=== PATIENT | male | born 1955 | race Caucasian/White ===

== ENCOUNTER 2016-08-27 16:05 | Inpatient (IN) | payer OTHER ==
[2016-08-27] VITALS (8 sets, daily range): BP systolic 102–167; BP diastolic 58–95; PULSE 111–161; RESP 18–20; O2SAT 92–97
[~2016-08-27] VITALS: Ht 160 cm; Wt 92.2 kg
--- NOTE | 2016-08-27 16:15 | ED.REPORT ---
HPI-General Illness Date of Service Aug 27, 2016 ED Provider: Roz Law MD The patient is a 60 year old male who is HIV positive on medication who presents to the ED due to left leg swelling increased in severity from baseline , beginning at 1pm this afternoon. He has had issues with edema for several years and is generally able to use antibiotics at home to successfully treat symptoms. Today he also reports fever, tachycardia, left leg pain, fatigue, and slight SOB. He denies weakness, dizziness, nausea, diarrhea, and cough. Nursing Notes Stated Complaint: LEG SWELLING, HX OF CELLULITIS Chief Complaint: General Complaint Nursing Notes Reviewed: Yes Allergies: Coded Allergies: Sulfa (Sulfonamide Antibiotics) (Verified Allergy, Unknown, 08/27/16) General Time Seen by MD: 16:14 Chief Complaint Other (left leg swelling) Hx Obtained From: Patient Arrived By: Walk-in Symptom Duration: Since onset Location: : Leg left Quality: Painful Severity: Current: Mild Recent Healthcare: No recent doctor visit, No recent hospitalization Similar Sx Previous: Yes Past Medical History Past Medical History HIV positive on medication Past Surgical History unknown Smoking History Unknown if Ever Smoker Social History Other Social History: Good social support, Local resident Ambulatory Status Independent Review of Systems Full Review of Systems Constitutional: Reports: Fatigue, Fever Respiratory: Reports: Shortness of breath, Denies: Non-productive cough GI: Denies: Diarrhea, Nausea Musculoskeletal: Reports: Extremity pain Neurologic: Denies: Dizziness, Weakness Complete sys rev & neg: except as marked. Physical Exam Vital Signs Vital Signs Date Time Temp Pulse Resp B/P Pulse Ox O2 Delivery O2 Flow Rate FiO2 08/27/16 18:46 113 18 110/64 93 Room Air 08/27/16 18:30 115 19 102/67 93 Room Air 08/27/16 17:25 125 18 125/58 92 Room Air 08/27/16 16:45 37.9 08/27/16 16:08 39.1 161 20 167/95 93 Room Air Initial VS: Reviewed, Vital signs abnormal Skin: Warm, Dry General/Constitutional: Awake, Alert, No acute distress Head / Eyes: Atraumatic, Normocephalic, PERRL, EOMI Respiratory / Chest: Atraumatic, Breath sounds NL, Breath sounds = bilat, No respiratory distress Cardiovascular: Regular rhythm, Heart sounds NL Heart Rate / Rhythm: Positive: Tachycardia Lower Ext Edema: Positive: Left 3+ Abdomen: Atraumatic, Soft, Non-tender Left Ankle: Positive: Erythema present Left Foot: Positive: Erythema present Interpretation & Diagnostics Interpretation & Diagnostics: VENOUS DUPLEX US IMPRESSION: No evidence of deep vein thrombosis involving the left lower extremity. Dictated by: Kristen Coates MD, PhD on 08/27/2016 at 17:52 Approved by: Kristen Coates MD, PhD on 08/27/2016 at 17:52 Lab Results Interpretation Result Diagram: 08/27/16 1625 08/27/16 1625 Test 08/27/16 16:25 08/27/16 18:37 White Blood Count 16.4th/mm3 (3.8-10.1) Red Blood Count 4.39mil/mm3 (4.40-5.80) Hemoglobin 14.9g/dL (13.8-17.2) Hematocrit 42.6% (41.0-50.0) Mean Corpuscular Volume 97.0fL (81-100) Mean Corpuscular Hemoglobin 33.9pg (27.0-35.0) Mean Corpuscular Hemoglobin Concent 35.0% (32.0-37.0) Red Cell Distribution Width 12.8% (12.3-15.4) Platelet Count 154bil/L (150-400) Neutrophils (%) (Auto) 88.4% (40-74) Lymphocytes (%) (Auto) 4.6% (14-46) Monocytes (%) (Auto) 5.4% (4-12) Eosinophils (%) (Auto) 0.9% (0-5) Basophils (%) (Auto) 0.2% (0-3) Sodium Level 135mEq/L (134-144) Potassium Level 3.9mEq/L (3.5-5.2) Chloride Level 97mEq/L (97-108) Carbon Dioxide Level 21mmol/L (18-29) Blood Urea Nitrogen 16mg/dL (6-24) Creatinine 1.35mg/dL (0.76-1.27) Estimat Glomerular Filtration Rate 58mL/min (>59) Glucose Level 251mg/dL (60-99) Lactic Acid Level 3.8mmol/L (0.4-2.0) Calcium Level 10.1mg/dL (8.5-10.1) Magnesium Level 1.5mg/dL (1.6-2.6) Total Bilirubin 0.6mg/dL (0.0-1.2) Aspartate Amino Transf (AST/SGOT) 32U/L (0-50) Alanine Aminotransferase (ALT/SGPT) 35U/L (0-44) Alkaline Phosphatase 66U/L (25-150) Troponin T < 0.010ug/L (0.0-0.011) Total Protein 8.0g/dL (6.4-8.4) Albumin 4.7g/dL (3.4-5.0) Procalcitonin 2.24ng/mL (0.00-0.08) Urine Color Yellow (YELLOW) Urine Appearance Clear (CLEAR,HAZY) Urine pH 6.0 (5.0-8.0) Urine Specific [place] 1.015 (1.003-1.035) Urine Protein Tracemg/dL (NEG,TRACE) Urine Glucose (UA) 1000mg/dL (NEGATIVE) Urine Ketones Negativemg/dL (NEGATIVE) Urine Occult Blood Small (NEGATIVE) Urine Nitrite Negative (NEGATIVE) Urine Bilirubin Negative (NEGATIVE) Urine Urobilinogen Normalmg/dL (NORMAL) Urine Leukocyte Esterase Negative (NEGATIVE) Urine RBC 0-2/hpf (0-2) Urine WBC 0-5/hpf (0-5) Urine Epithelial Cells None/hpf (NONE-MOD) Urine Crystals None seen (NONE SEEN) Urine Bacteria Few/hpf (NONE-FEW) Urine Hyaline Casts None/lpf (NONE) Urine Granular Casts None seen (NONE SEEN) Urine Waxy Casts None seen (NONE SEEN) Urine Red Blood Cell Casts None seen (NONE SEEN) Urine White Blood Cell Casts None seen (NONE SEEN) Urine Mucus None seen (None Seen) Urine Trichomonas None seen (NONE SEEN) Urine Yeast None (NONE SEEN) Urinalysis Comment None Urine Culture Reflexed Not indicated ECG Interpretation Interpreted by: ED physician Normal ECG Interpretation: No acute ischemic changes, Normal axis, Normal intervals Rhythm / Conduction: Tachycardia (145) X-Ray Chest Interpretation Chest Xray Interpretation: IMPRESSION: No acute cardiopulmonary disease process. Dictated by: Kristen Coates MD, PhD on 08/27/2016 at 16:46 Approved by: Kristen Coates MD, PhD on 08/27/2016 at 16:46 View: Portable Interpretation / Wet Read by: Interpret - Radiologist Re-Eval/Medical Decision Med Decision/Clinical Course The patient started having symptoms just this afternoon, he meets sepsis criteria. The patient improved during his stay in the emergency department was started on broad-spectrum antibiotics. Consultation : Referral / Consult Name: Wander Hernandez Consulted With: Hospitalist Call Returned at: 18:36 Manufacturers Representative: Agrees with eval, Agrees with plan Note: Case discussed. Counseled Regarding: Diagnosis, Lab results, Need for admission Discharge & Departure Primary Impression: Sepsis Sepsis type: sepsis due to unspecified organism Qualified Code: A41.9 - Sepsis, unspecified organism Additional Impression: Cellulitis Site of cellulitis: unspecified site Qualified Code: L03.90 - Cellulitis, unspecified Disposition: ADMITTED TO HOSPITAL Discharge Condition All VS Reviewed: Yes Condition: Stable Referrals: Skip George MD (PCP) Scribe Attestation Portion of this note were transcribed by Whitley Root. I, Dr. Law, personally performed the history, physical exam, and medical decision-making: I reviewed and confirmed the accuracy for the information in the transcribed note. Signed by: pranay Zuniga, 08/27/16 1700 copies to: Skip George MD, Jena M MD Aug 27, 2016 16:15 Whitley Root Aug 27, 2016 16:25
[2016-08-27] MEDS ORDERED: Vancomycin Dose per Pharmacist XX ONE (16:20)
[2016-08-27] MEDS ORDERED: Aztreonam Inj 2,000 MG in Dextrose 5% Minibag Plus 100 ML IV ONE (16:20)
[2016-08-27] MEDS ORDERED: Clindamycin Inj 900 MG in IV Premix 1 EACH IV ONE (16:20)
[2016-08-27] MEDS ORDERED: 0.9% Sodium Chloride 1,000 ML IV PRN (16:20)
[2016-08-27] MEDS ORDERED: Ketorolac 15 mg/mL Inj IVPUSH ONE (16:25)
[2016-08-27] MEDS ORDERED: HYDROmorphone 0.5 mg/0.5 mL iSecure Syringe IVPUSH ONE (16:25)
--- NOTE | 2016-08-27 16:38 | PCM.PHAPRO ---
Progress Based on patient parameters vancomycin will receive a one-time dose of 1750 mg Please reconsult pharmacy if the patient is admitted and you wish for vancomycin therapy to continue. Thank you for the consult in the care of this patient. RTM PharmD Madi Mcqueen Pharm.D Aug 27, 2016 16:38
[2016-08-27] MEDS ORDERED: Vancomycin Inj 1,500 MG in 0.9% Sodium Chloride 500 ML IV ONE (16:40)
--- NOTE | 2016-08-27 16:48 | DRSVH ---
PROCEDURE: X-RAY CHEST ONE VIEW, PORTABLE ([id number]) INDICATIONS: sepsis TECHNIQUE: One view of the chest was acquired. COMPARISON: None. FINDINGS: Surgical changes and devices: None. Lungs and pleura: No pleural effusions or pneumothorax. Lungs are clear. Mediastinum: Mediastinal contours appear normal. Heart size is normal. Bones and chest wall: No suspicious bony lesions. Overlying soft tissues appear unremarkable. IMPRESSION: No acute cardiopulmonary disease process. Dictated by: Kristen Coates MD, PhD on 08/27/2016 at 16:46 Approved by: Kristen Coates MD, PhD on 08/27/2016 at 16:46
[2016-08-27 16:58] LABS: BASOPHILS % (AUTO) 0.2 % (0-3); EOSINOPHILS % (AUTO) 0.9 % (0-5); MONOCYTES % (AUTO) 5.4 % (4-12); Mean Corpuscular Hemoglobin 33.9 pg (27.0-35.0); NEUTROPHILS % (AUTO) 88.4 % (40-74); Platelet Count 154 bil/L (150-400)
[2016-08-27 17:32] LABS: TROPONIN T < 0.010 ug/L (0.0-0.011)
[2016-08-27 17:38] LABS: Magnesium 1.5 mg/dL (1.6-2.6)
--- NOTE | 2016-08-27 17:54 | DRSVH ---
PROCEDURE: US VEINOUS LEG DUPLEX UNILATERAL, LEFT INDICATIONS: left leg swelling TECHNIQUE: Real-time imaging, as well as color and pulse Doppler interrogation, were performed of the lower extr emity deep veins from the inguinal ligament to the popliteal fossa. COMPARISON: None. FINDINGS: The deep veins are normally compressible, and free of intraluminal thrombus. Color and pu lse Doppler demonstrate normal phasic intraluminal flow. There is normal augmentation response to di stal compression maneuver. IMPRESSION: No evidence of deep vein thrombosis involving the left lower extremity. Dictated by: Kristen Coates MD, PhD on 08/27/2016 at 17:52 Approved by: Kristen Coates MD, PhD on 08/27/2016 at 17:52
[2016-08-27 18:46] LABS: APPEARANCE,URINE CLEAR (CLEAR,HAZY); COLOR,URINE YELLOW (YELLOW)
[2016-08-27 18:47] LABS: OCCULT BLOOD,URINE SMALL (NEGATIVE); UROBILINOGEN,URINE NORMAL (NORMAL)
[2016-08-27] MEDS ORDERED: Lactated Ringer's 1,000 ML IV SCH (19:36)
[2016-08-27] MEDS ORDERED: Alum-Mag Hydrox-Simeth 30 mL Suspension PO PRN ×2 (19:40→21:20)
[2016-08-27] MEDS ORDERED: Ondansetron 2 mg/mL 2 mL Inj IVPUSH PRN ×2 (19:40→21:20)
[2016-08-27] MEDS: Vancomycin Dose per Pharmacist XX SCH (19:45)
--- NOTE | 2016-08-27 19:52 | PCM.HPMED ---
Subjective Date of Service Aug 27, 2016 Primary Provider: Admitting Physician: Jayme Gomez MD Primary Care Physician: Skip George MD Attending Physician: Jayme Gomez MD Admit Status: From the Emergency Department Chief Complaint: Left Leg Cellulitis History of Present Illness: 60yo man with history of HIV since 2008 well managed went to this afternoon with fever, nausea, vomiting, and left lower extremity swelling, erythema, and pain that started at 1pm with no inciting incident, no broken skin, no trauma. He was sent to the ER where he was found to have VS of T 39.1, HR 161, RR 20, BP 167/95 and 93% O2 sat on room air. Venous ultrasound of left LE was negative for DVT. He was given a bolus of 1 liter of NS, and one dose each of Vancomycin, Aztreonam, and Clindamycin along with pain medications. He is resting comfortably. He says his left leg is always more swollen than the right and he has had milder similar symptoms in the past without feeling otherwise ill. He reports being diagnosed with HIV in 2008 and having always had an undetectable viral load and good T cell count with the last being over 600. He takes Descovy 200-25mg PO qhs and Tivacay 50mg PO qhs. His only other medical problem is hypertension managed well he reports with Lisinopril 10mg PO daily. Review of Systems: Complete ROS is otherwise negative except as noted above in the HPI. Allergies Coded Allergies: Sulfa (Sulfonamide Antibiotics) (Verified Allergy, Unknown, 08/27/16) Home Medications Descovy 200-25mg PO qhs Tivacay 50mg PO qhs Lisinopril 10mg PO daily Multivitamin Vitamin D3 Iron supplement PMH Hypertension HIV Surgical History Tonsillectomy as a child Family History Father: of colon cancer at age 78 Mother: had HTN and of a stroke at age 86 Social History Hx Alcohol Use: No Hx Substance Use: No Hx Tobacco Use: No Smoking Status: Never Smoker, Unknown if Ever Smoker Living Arrangement: with Friends/Roommate (Life Partner is Eddie) Exam Vital Signs Vital Sign - Last Date Time Temp Pulse Resp B/P Pulse Ox O2 Delivery O2 Flow Rate FiO2 08/27/16 18:46 113 18 110/64 93 Room Air 08/27/16 16:45 37.9 Exam General: Alert, Oriented X3, Cooperative, No Acute Distress Head: Normocephalic, atraumatic. External ears normal. Eyes: PERRLA, EOMI. Anicteric sclerae. Mouth: Mouth Normal, Mucous Membranes Moist/[place] Neck: Neck supple with full range of motion. Chest & Lungs: Clear to auscultation bilaterally with no crackles, wheezes, or rhonchi. Cardiovascular: Regular Rate/Rhythm, Normal S1, Normal S2, No Murmurs/Rubs/ Gallops Abdomen: Non-tender, Non-distended, No masses, Normoactive bowel tones, Soft Musculoskeletal: Normal Range of Motion Extremities: No cyanosis/clubbing/edema in right leg. Left lower leg has 3+ edema from the foot to the knee, the foot is fully and evenly erythematous, the lower leg has a patchy macular rash. Neurological: Grossly Neurologically Intact, Cranial Nerves 2-12 Intact, Normal Speech Lab and Diagnostics Labs Laboratory Tests Test 08/27/16 16:25 08/27/16 18:37 White Blood Count 16.4th/mm3 (3.8-10.1) Red Blood Count 4.39mil/mm3 (4.40-5.80) Hemoglobin 14.9g/dL (13.8-17.2) Hematocrit 42.6% (41.0-50.0) Mean Corpuscular Volume 97.0fL (81-100) Mean Corpuscular Hemoglobin 33.9pg (27.0-35.0) Mean Corpuscular Hemoglobin Concent 35.0% (32.0-37.0) Red Cell Distribution Width 12.8% (12.3-15.4) Platelet Count 154bil/L (150-400) Neutrophils (%) (Auto) 88.4% (40-74) Lymphocytes (%) (Auto) 4.6% (14-46) Monocytes (%) (Auto) 5.4% (4-12) Eosinophils (%) (Auto) 0.9% (0-5) Basophils (%) (Auto) 0.2% (0-3) Sodium Level 135mEq/L (134-144) Potassium Level 3.9mEq/L (3.5-5.2) Chloride Level 97mEq/L (97-108) Carbon Dioxide Level 21mmol/L (18-29) Blood Urea Nitrogen 16mg/dL (6-24) Creatinine 1.35mg/dL (0.76-1.27) Estimat Glomerular Filtration Rate 58mL/min (>59) Glucose Level 251mg/dL (60-99) Lactic Acid Level 3.8mmol/L (0.4-2.0) Calcium Level 10.1mg/dL (8.5-10.1) Magnesium Level 1.5mg/dL (1.6-2.6) Total Bilirubin 0.6mg/dL (0.0-1.2) Aspartate Amino Transf (AST/SGOT) 32U/L (0-50) Alanine Aminotransferase (ALT/SGPT) 35U/L (0-44) Alkaline Phosphatase 66U/L (25-150) Troponin T < 0.010ug/L (0.0-0.011) Total Protein 8.0g/dL (6.4-8.4) Albumin 4.7g/dL (3.4-5.0) Procalcitonin 2.24ng/mL (0.00-0.08) Urine Color Yellow (YELLOW) Urine Appearance Clear (CLEAR,HAZY) Urine pH 6.0 (5.0-8.0) Urine Specific [place] 1.015 (1.003-1.035) Urine Protein Tracemg/dL (NEG,TRACE) Urine Glucose (UA) 1000mg/dL (NEGATIVE) Urine Ketones Negativemg/dL (NEGATIVE) Urine Occult Blood Small (NEGATIVE) Urine Nitrite Negative (NEGATIVE) Urine Bilirubin Negative (NEGATIVE) Urine Urobilinogen Normalmg/dL (NORMAL) Urine Leukocyte Esterase Negative (NEGATIVE) Urine RBC 0-2/hpf (0-2) Urine WBC 0-5/hpf (0-5) Urine Epithelial Cells None/hpf (NONE-MOD) Urine Crystals None seen (NONE SEEN) Urine Bacteria Few/hpf (NONE-FEW) Urine Hyaline Casts None/lpf (NONE) Urine Granular Casts None seen (NONE SEEN) Urine Waxy Casts None seen (NONE SEEN) Urine Red Blood Cell Casts None seen (NONE SEEN) Urine White Blood Cell Casts None seen (NONE SEEN) Urine Mucus None seen (None Seen) Urine Trichomonas None seen (NONE SEEN) Urine Yeast None (NONE SEEN) Urinalysis Comment None Urine Culture Reflexed Not indicated Microbiology 08/27/16 Blood Culture, Received Pending Result Diagram: 08/27/16 1625 08/27/16 1625 Microbiology Blood cultures pending X-Rays, CTs and MRIs Venous duplex shows no evidence of DVT in the left LE CXR reveals no acute cardiopulmonary process 12-lead ECG Sinus Tachycardia with rate of 145 Assessment & Plan 60yo man with history of HIV, HTN, and left leg swelling presents with fever, NV , increased left leg swelling, pain, and erythema since 1pm today. He was seen at and sent to the ER where he was found to be septic with T 39.1, HR 161, RR 20, WBCs of 16.4, and was treated with a bolus of 1 liter of NS, IV pain medications, and three antibiotics: Vancomycin 1.5gm IV, Aztreonam 3gm IV, Clindamycin 900mg IV. He is resting comfortably now. His partner Eddie will bring in his HIV medications tonight. 1. Left Leg Cellulitis, POA, improving. Patient has well controlled HIV reporting daily adherence to triple cocktail HIV medications and recent T cell count of 600. -Continue with Vancomyin IV per pharmacist -Hydrocodone-APAP 5-325mg PO q4h PRN for pain -CBC w/diff, lactic acid, MRSA nasal swab ordered for the morning 2. Sepsis, POA, improving. NS 1liter bolus given in ER, antibiotics initiated in ER: Vancomycin 1.5gm IV, Aztreonam 3gm IV, Clindamycin 900mg IV -Stop bolusing of of NS 1liter, then switch to maintenance NS IV. HR is now 113 , RR 18, and last T was 37.9. Lactate is 3.8 -NS 100mls/hr IV for maintenance -Antibiotics as above -Procalcitonin ordered for today and in the morning. 3. HIV, POA, stable. Patient reporting never having a detectable viral load after starting treatment and last T cell count was 600. He is mounting a good immune response here with WBCs of 16.4 -Continue home doses of Descovy 200-25mg PO qhs and Tivacay 50mg PO qhs. 4. HTN, POA, stable. Patient's BP returned to normal levels after a bolus of saline, IV pain medications, and initiation of antibiotics -Continue home dose of Lisinopril 10mg PO daily. 5. Tinea Pedis, POA. This is moderately severe between the toes of the left foot and could easily worsen rapidly with the swelling and heat in his foot. -Clotrimazole 1% cream to affected areas BID. PRN medications available for nausea, heartburn, constipation: Ondansetron, Maalox, Senna, Miralax DIET: general Pain Evaluation: Adequate Pain Control GI Prophylaxis: Not indicated VTE Prophylaxis: Sub-Q Heparin (Unfractionated) Resuscitation Status: CPR: Attempt Resuscitation Attending Statement The patient was seen and examined together with Dr. Shah on 08/27 and I agree with the history, exam and plan as outlined in the note above. Cal Shah DO Aug 27, 2016 19:52 Jayme Gomez MD Aug 28, 2016 01:51
--- NOTE | 2016-08-27 20:00 | NUR ---
Admission to [facility] Room 2012 Pt arrived to the room on a gurney with vancomycin running and on RA. Pt was able to independently transfer self from gurney to the bed with a steady gait and no c/o chest pain, dizziness, or weakness. Pt's VSS and pt was afebrile upon arrival to the room. Pt is AOx3 and TRIPP.
[2016-08-27] MEDS ORDERED: HYDROcodone-APAP 5-325 mg Tablet PO PRN (20:30)
[2016-08-27] MEDS: DESCOVY PO SCH (21:00)
[2016-08-27] MEDS ORDERED: Polyethylene Glycol (PEG) 17 Gm Powder PO PRN (21:20)
[2016-08-27] MEDS: 0.9% Sodium Chloride 1,000 ML IV SCH (21:28)
[2016-08-28] VITALS (8 sets, daily range): BP systolic 105–153; BP diastolic 59–84; PULSE 99–123; RESP 18–20; O2SAT 92–95
[2016-08-28] MEDS ORDERED: Clindamycin Inj 600 MG in IV Premix 1 EACH IV SCH (00:30)
[2016-08-28] MEDS: Heparin 5,000 Unit/mL Inj SUBQ SCH ×3 (00:36→16:24)
--- NOTE | 2016-08-28 01:19 | PCM.CONPHA ---
Subjective Date of Service: Aug 28, 2016 Requesting Provider: Cal Shah DO Left Leg Cellulitis Reason for Pharmacy Consult: Vancomycin Dosing Objective Vital Signs Date Time Temp Pulse Resp B/P Pulse Ox O2 Delivery O2 Flow Rate FiO2 08/27/16 23:55 39.4 122 20 149/78 95 Room Air 08/27/16 20:16 111 08/27/16 20:00 36.8 116 20 136/81 97 Room Air 08/27/16 19:43 37.9 113 18 110/64 93 Room Air 08/27/16 18:46 113 18 110/64 93 Room Air 08/27/16 18:30 115 19 102/67 93 Room Air 08/27/16 17:25 125 18 125/58 92 Room Air 08/27/16 16:45 37.9 08/27/16 16:08 39.1 161 20 167/95 93 Room Air Intake and Output 08/26/16 08/27/16 08/28/16 00:00 00:00 00:00 Intake Total 2000 ml Balance 2000 ml Weight (Kilograms): 92.200 Height (Feet): 5 Height (Inches): 3.00 Test 08/27/16 16:25 08/27/16 18:37 White Blood Count 16.4th/mm3 (3.8-10.1) Red Blood Count 4.39mil/mm3 (4.40-5.80) Hemoglobin 14.9g/dL (13.8-17.2) Hematocrit 42.6% (41.0-50.0) Mean Corpuscular Volume 97.0fL (81-100) Mean Corpuscular Hemoglobin 33.9pg (27.0-35.0) Mean Corpuscular Hemoglobin Concent 35.0% (32.0-37.0) Red Cell Distribution Width 12.8% (12.3-15.4) Platelet Count 154bil/L (150-400) Neutrophils (%) (Auto) 88.4% (40-74) Lymphocytes (%) (Auto) 4.6% (14-46) Monocytes (%) (Auto) 5.4% (4-12) Eosinophils (%) (Auto) 0.9% (0-5) Basophils (%) (Auto) 0.2% (0-3) Sodium Level 135mEq/L (134-144) Potassium Level 3.9mEq/L (3.5-5.2) Chloride Level 97mEq/L (97-108) Carbon Dioxide Level 21mmol/L (18-29) Blood Urea Nitrogen 16mg/dL (6-24) Creatinine 1.35mg/dL (0.76-1.27) Estimat Glomerular Filtration Rate 58mL/min (>59) Glucose Level 251mg/dL (60-99) Lactic Acid Level 3.8mmol/L (0.4-2.0) Calcium Level 10.1mg/dL (8.5-10.1) Magnesium Level 1.5mg/dL (1.6-2.6) Total Bilirubin 0.6mg/dL (0.0-1.2) Aspartate Amino Transf (AST/SGOT) 32U/L (0-50) Alanine Aminotransferase (ALT/SGPT) 35U/L (0-44) Alkaline Phosphatase 66U/L (25-150) Troponin T < 0.010ug/L (0.0-0.011) Total Protein 8.0g/dL (6.4-8.4) Albumin 4.7g/dL (3.4-5.0) Procalcitonin 2.24ng/mL (0.00-0.08) Urine Color Yellow (YELLOW) Urine Appearance Clear (CLEAR,HAZY) Urine pH 6.0 (5.0-8.0) Urine Specific [place] 1.015 (1.003-1.035) Urine Protein Tracemg/dL (NEG,TRACE) Urine Glucose (UA) 1000mg/dL (NEGATIVE) Urine Ketones Negativemg/dL (NEGATIVE) Urine Occult Blood Small (NEGATIVE) Urine Nitrite Negative (NEGATIVE) Urine Bilirubin Negative (NEGATIVE) Urine Urobilinogen Normalmg/dL (NORMAL) Urine Leukocyte Esterase Negative (NEGATIVE) Urine RBC 0-2/hpf (0-2) Urine WBC 0-5/hpf (0-5) Urine Epithelial Cells None/hpf (NONE-MOD) Urine Crystals None seen (NONE SEEN) Urine Bacteria Few/hpf (NONE-FEW) Urine Hyaline Casts None/lpf (NONE) Urine Granular Casts None seen (NONE SEEN) Urine Waxy Casts None seen (NONE SEEN) Urine Red Blood Cell Casts None seen (NONE SEEN) Urine White Blood Cell Casts None seen (NONE SEEN) Urine Mucus None seen (None Seen) Urine Trichomonas None seen (NONE SEEN) Urine Yeast None (NONE SEEN) Urinalysis Comment None Urine Culture Reflexed Not indicated Assessment/Plan Assessment/Plan A: * Vancomycin dosing for 60 y/o HIV positive man with sepsis, cellulitis * The patient received a 1500 mg IV vancomycin loading dose in the ED * His estimated CrCl is 60 mL/min (Cockcroft & Gault using AdjBW) * Estimated vancomycin half-life is 13 hours and estimated Vd is 65 liters P: * Starting vancomycin 1000 mg IV every 12 hours * Target a vancomycin trough level of 15 - 20 mcg/mL for now * Drawing a trough level prior to the fourth dose * Pharmacy to adjust dosing as appropriate per level/renal function Thank you. Pharmacy will continue to follow this patient. Nelda Mccann, PharmD Nelda Mccann Aug 28, 2016 01:19
[2016-08-28] MEDS ORDERED: LISI10TA PO (06:50)
--- NOTE | 2016-08-28 07:27 | NUR ---
Fever Pt's HR increased into the 130s and pt's temperature was taken. Pt's temperature was 39.4 and pt was given 975mg Tylenol. One hour post administration of Tylenol pt's temperature was checked again and was 39.3. Two hours later the pt's temperature was 37.3.
[2016-08-28] MEDS ORDERED: Glucose 40% Oral Gel 15 Gm Tube PO PRN (07:55)
[2016-08-28] MEDS ORDERED: DOLU50TA PO (08:06)
[2016-08-28] MEDS ORDERED: EMTR1TAB14 PO (08:06)
[2016-08-28] MEDS: Vancomycin Dose per Pharmacist XX SCH (08:30)
[2016-08-28] MEDS: 0.9% Sodium Chloride 1,000 ML IV SCH ×2 (09:26→15:45)
[2016-08-28 09:27] LABS: BASOPHILS % (AUTO) 0.1 % (0-3); EOSINOPHILS % (AUTO) 0 % (0-5); MONOCYTES % (AUTO) 4.3 % (4-12); NEUTROPHILS % (AUTO) 90.2 % (40-74); Platelet Count 137 bil/L (150-400)
[2016-08-28] MEDS: Vancomycin Inj 1,000 MG in IV Premix 1 EACH IV SCH ×2 (09:27→20:01)
[2016-08-28] MEDS: Insulin LISPRO 300 Unit/3 mL Inj SUBQ SCH ×4 (09:31→22:00)
[2016-08-28] MEDS: Insulin GLARgine 100 Unit/mL Syringe SUBQ SCH (09:49)
--- NOTE | 2016-08-28 12:27 | PCM.PNMED ---
Subjective Date of Service Aug 28, 2016 Subjective 60-year-old man with chronic left lower extremity swelling HIV presents with acute leg cellulitis He reports reduced left leg pain today. Feels that erythema is about the same. No symptoms other than left lower extremity. HIV medications were changed 4 months ago. He has gained 20 pounds over past 4 months. Does not know prior diagnosis of diabetes. Exam Vital Signs Vital Sign - Last Date Time Temp Pulse Resp B/P Pulse Ox O2 Delivery O2 Flow Rate FiO2 08/28/16 11:42 37.2 99 20 119/68 94 Room Air Intake and Output 08/27/16 08/27/16 08/28/16 Cumulative From/Thru 15:00 23:00 07:00 08/27/16 16:08 - 08/28/16 06:37 Intake Total 2000 ml 500 ml 2500 ml Output Total 1275 ml 1275 ml Balance 2000 ml -775 ml 1225 ml Intake Oral 500 ml 500 ml IV Total 2000 ml 2000 ml Output Urine Total 1275 ml 1275 ml # Voids 6 6 Exam General: Healthy-appearing obese man in no acute distress HEENT: sclerae anicteric, oral mucosa moist Neck: no JVD Chest: clear to auscultation Cardiac: S1S2, no murmur Abdomen: BS normal, non-tender Extremities: Left leg swollen, patchy erythema over lower three quarters of left lower extremity, no vesicles exudate or crusting Neuro: A&O, cranial nerves symmetric, motor strength 5/5, coordination normal IVs and Medications Medications Reviewed: Medications were reviewed in detail Lab and Diagnostics Result Diagram: 08/28/16 0915 08/28/16 0253 Microbiology MRSA negative ASO titer pending Blood cultures pending . X-Rays, CTs and MRIs PROCEDURE: US VEINOUS LEG DUPLEX UNILATERAL, LEFT IMPRESSION: No evidence of deep vein thrombosis involving the left lower extremity. Dictated by: Kristen Coates MD, PhD on 08/27/2016 at 17:52 . 12-lead ECG Sinus Tachycardia with rate of 145 Assessment & Plan 60yo man with history of HIV, HTN, and left leg swelling presents with fever, NV , increased left leg swelling, pain, and erythema since 1pm today. He was seen at and sent to the ER where he was found to be septic with T 39.1, HR 161, RR 20, WBCs of 16.4, and was He is resting comfortably now. His partner Eddie will bring in his HIV medications tonight. #. Sepsis, POA, improving. SIRS criteria. Sinus tachycardia 161, temperature 39.1, respiratory rate 20, WBC 16.4 on admission. Focal infection left lower extremity cellulitis. NS 1liter bolus given in ER, antibiotics initiated in ER : Vancomycin 1.5gm IV, Aztreonam 3gm IV, Clindamycin 900mg IV. -NS 100mls/hr IV for maintenanc #. Left Leg Cellulitis, POA, improving. Treated with a bolus of 1 liter of NS , IV pain medications, and three antibiotics: Vancomycin 1.5gm IV, Aztreonam 3gm IV, Clindamycin 900mg IV in the emergency department. Continued on vancomycin. -Antibiotics per infectious disease consult; switch from vancomycin in light of MRSA negative -Hydrocodone-APAP 5-325mg PO q4h PRN for pain -CBC w/diff, #. Hyperglycemia. Likely type II diabetes mellitus. 2 random glucose greater than 200, albeit in setting of severe metabolic stress. - Check hemoglobin A1c for diagnosis - Basal bolus insulin coverage #. HIV, POA, stable. Patient has well controlled HIV reporting daily adherence dual NRTI and integrase inhibitor medications and recent T cell count of 600. Patient reporting never having a detectable viral load after starting treatment and last T cell count was 600. He is mounting a good immune response here with WBCs of 16.4 -Continue home doses of Descovy 200-25mg PO qhs and Tivicay 50mg PO qhs. #. HTN, POA, stable. Patient's BP returned to normal levels after a bolus of saline, IV pain medications, and initiation of antibiotics -Continue home dose of Lisinopril 10mg PO daily. #. Tinea Pedis, POA. This is moderately severe between the toes of the left foot and could easily worsen rapidly with the swelling and heat in his foot. -Clotrimazole 1% cream to affected areas BID. PRN medications available for nausea, heartburn, constipation: Ondansetron, Maalox, Senna, Miralax DIET: general Pain Evaluation: Adequate Pain Control GI Prophylaxis: Not indicated VTE Prophylaxis: Sub-Q Heparin (Unfractionated) Resuscitation Status: CPR: Attempt Resuscitation Time spent 35 minutes Toby Moura MD Aug 28, 2016 12:27
--- NOTE | 2016-08-28 15:44 | NUR ---
Social Work Note - Screening: D/A: The Pt is a 60 y/o male that was admitted for lower left extremity cellulitis. Readmission Risk Score is 0. The Pt's PCP is MD Skip George and his insurance is [employer]. EMR reviewed. The Pt lives independently in [place] with friends/roommates. Pt discussed in morning rounds, not ready for discharge at this time. ID following for IV Abx. SW to follow for needs. P: The Pt is not medically stable for discharge, likely to discharge home via POV when ready. SW to follow for needs. Madeline Oakley, LAY UPS ASSEMBLER Web Page Developer KRISTINE Griggs
--- NOTE | 2016-08-28 16:17 | CONS ---
[address] [address] CONSULTATION REPORT PATIENT: MARK JUAREZ : 1955 MR#: [id number] ADMIT: 08/27/2016 JOB ID: [id number] DATE OF SERVICE: 08/28/[address] Vinicio Moura for this consult. REASON FOR CONSULTATION: Severe and recurrent left lower extremity cellulitis in a patient with HIV disease. HISTORY OF PRESENT ILLNESS: The patient is a 60-year-old gentleman who has known about his diagnosis of HIV for about eight years. He is currently taking a combination of Descovy and Tivicay. On this regimen, he has consistently undetectable viral loads as well as a CD4 count in excess of 400. He has never had any AIDS-related infection. Unfortunately, the patient has had now several episodes, over about 25 years, of recurrent severe left lower extremity cellulitis. He reports the first of these attacks occurred in the late 80s and he is not aware of any precipitating factors, though he has had some persistent swelling in his left lower extremity as compared to the right, which has been going on for most of the 20- some years he has been having this recurrent cellulitis. These periods of recurrent cellulitis long predate his HIV diagnosis, and he has never had any history of Kaposi's sarcoma. In association with these episodes of cellulitis, the patient typically has high fevers, severe lower extremity pain, nausea, vomiting, and an inability to even stand on the leg. This episode was typical and he experienced all those marked symptoms and was found, after admission, to also have a high white count as well as lactic acidosis and an extremely high procalcitonin. He has been admitted to the [facility] and has been receiving antibiotics really overnight, as well as fluid hydration, and he reports he is already starting to feel a bit better though still has a great deal of pain below the knee. He has also noted some continued fevers and chills. Minimal headache has been noted and he has not had any sore throat, significant cough, chest pain, or shortness of breath. No nausea, vomiting, or diarrhea either. No genitourinary symptoms. He reports that this episode is very similar to prior episodes in that they are always in the left leg. They always start off suddenly and they often require hospitalization, though his last attack, which was four years ago, did not result in an inpatient stay but rather just oral antibiotics. He is not aware of any trauma or predisposing factors to this recurrent process. PAST MEDICAL HISTORY: 1. HIV x8 years, with excellent CD4 and viral load controlled by Dr. George. 2. Chronic left lower extremity edema. 3. Recurrent left lower extremity soft tissue infection. SOCIAL HISTORY: The patient is a nonsmoker, nondrinker. 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 FAMILY HISTORY: Negative for TB in first- and second-degree relatives. His father of colon cancer and his mother of a stroke. REVIEW OF SYSTEMS: The patient today has no headache though he had one on admission yesterday. No change in his vision. No sore throat. No significant cough, shortness of breath or chest pain. No nausea, vomiting, or diarrhea, though he did have some nausea, as well as vomiting early in the stay yesterday. No dysuria, urgency, or frequency. No swelling of the joints. He did have the sudden and severe swelling and redness of his left lower extremity below the knee, which started yesterday. Remainder of the review of systems was negative. PHYSICAL EXAMINATION: Reveals an afebrile gentleman, 37.2, but just earlier this morning it was 39.0. Pulse 99, respiratory rate 20, blood pressure 119/68. He is saturating well on room air, in no acute distress. Examination of the head: No trauma. No temporal wasting. Eyes without conjunctivitis. Oral cavity: No thrush, hairy leukoplakia, pharyngitis or palatal erythema. Neck is supple and without adenopathy. Lungs quite clear posteriorly. Cardiac tones: Regular rate and rhythm. Abdomen is soft and nontender but obese. No inguinal nodes or femoral nodes are palpated. The patient has an intense erythema below the left knee which has the appearance of cellulitis without bullae. It is moderately warm, moderately tender to palpation, and without any obvious skin breakdown, bullae, or sloughing. He has full use of the extremities bilaterally, the lower extremities. As mentioned, no evidence for synovitis and no focal neuro deficit. LABORATORIES: Include white count was 16 yesterday, today 17,000 with left shift. Creatinine 1.28. Lactic acid went from 3.8 last night in the ER, to 2.5 this morning very early. Procalcitonin is currently 21. Urinalysis without white cells. Streptozyme is pending. Blood cultures negative and a MRSA screen of the nares is pending. IMAGING: Includes a venous duplex study of that leg which shows no DVT, as well as a chest x-ray that shows no acute pulmonary process. IMPRESSION: This patient appears to have what is now the fifth in about a 25-year history of recurrent cellulitis of the left lower extremity. Given the description of how this started suddenly and severely, I am inclined to think this is group A or group B strep, but as of yet, we have no proof of that. The patient is being treated with vancomycin and seems to be starting to get a bit better and I think that is an appropriate place to start, though will likely be narrowing or changing antibiotics going forward. I do not think the cellulitis is in any way related to his well-controlled human immunodeficiency virus and is more related to probably some distant venous or lymphatic trauma to the left lower extremity which predisposes his stasis and recurrent cellulitis. RECOMMENDATIONS: 1. The patient should be continued on his Descovy and Tivicay. 2. I agree with the vancomycin, which he is receiving currently and would continue that for the time being. 3. We will likely change his antibiotics considerably once we get a better idea what this may be in terms of etiology. 4. Will continue to closely follow this complex patient with you.
--- NOTE | 2016-08-28 18:24 | NUR ---
Tele/Fever No reports of chest pain/pressure/discomfort. Tele sinus tachy 110s, noectopy. Left leg cellulitis pitting, no drainage. No reports of SOB at rest. SPO2 on RA 93%. Patient reports mild SOB with ambulation. No reports of abdominal pain, mild nausea with no emesis -- patient reported loose BM this AM. Voiding small amounts of pale mary urine via urinal. Administered 650mg of PO tylenol with 1 tab percocet (5/325) x1, and 975mg of tylenol PO x1. Temperature ranged from 37.2-39, patient becomes flushed with significant shaking/chills -- reports relief with tylenol.
[2016-08-28] MEDS: DESCOVY PO SCH (21:00)
[2016-08-29] MEDS: Heparin 5,000 Unit/mL Inj SUBQ SCH ×3 (00:51→16:41)
[2016-08-29] MEDS: 0.9% Sodium Chloride 1,000 ML IV SCH ×3 (02:15→22:30)
[2016-08-29 03:58] VITALS: BP 100/50; PULSE 83; RESP 20; O2SAT 93
[2016-08-29 05:13] LABS: Hemoglobin A1C 7.3 % (4.8-5.6)
[2016-08-29] MEDS: Vancomycin Inj 1,000 MG in IV Premix 1 EACH IV SCH ×3 (06:00→22:30)
--- NOTE | 2016-08-29 06:28 | NUR ---
Fever/activity: Pt up in room indep. Pt had temp 38.4 was given tylenol recheck of temp was 36.7. Pt continues to get tylenol every 6 hrs.
[2016-08-29] MEDS ORDERED: Vancomycin Serum Trough XX ONE (07:30)
[2016-08-29 07:37] LABS: BASOPHILS % (AUTO) 0.2 % (0-3); EOSINOPHILS % (AUTO) 0.7 % (0-5); MONOCYTES % (AUTO) 5.9 % (4-12); Mean Corpuscular Hemoglobin 34.2 pg (27.0-35.0); NEUTROPHILS % (AUTO) 85.9 % (40-74); Platelet Count 110 bil/L (150-400)
--- NOTE | 2016-08-29 08:02 | PROG NOTE ---
[address] [address] PROGRESS NOTE PATIENT: MARK JUAREZ : 1955 MR#: [id number] ADMIT: 08/27/2016 JOB ID: [id number] DATE: 08/29/2016 REASON FOR FOLLOWUP: Severe left lower extremity cellulitis in a patient with underlying well-controlled HIV disease. INTERVAL HISTORY: Overnight, the patient has noted some moderation of his fever and chills. He has no significant pulmonary complaint. No nausea or vomiting, but he has had two loose stools since the initiation of antibiotics when he was admitted a couple days ago. He notes that his left lower extremity is gradually less swollen and less tender and he is already noting very significant improvement. PHYSICAL EXAMINATION: Reveals a man who is still febrile. At midnight he was 38.1, now 36.7, but his fevers are coming down gradually. Pulse 83, regular. Respiratory rate 20, blood pressure 100/50. He is not on any vasopressor agents. He is in no acute distress. Eyes without conjunctivitis. Oral cavity without thrush or pharyngitis. Lungs are clear. Cardiac tones regular rate and rhythm without murmur. Abdomen soft, somewhat obese, nontender. Left lower extremity was more of less confluent cellulitis between the knee and the ankle but it is less warm, less tender and less erythematous than it was yesterday. LABORATORIES: Include a white count yesterday 17,000. No labs today interestingly. Hemoglobin A1c yesterday was 7.3. Yesterday's procalcitonin was 21, after initial procalcitonin of 2 on August 27 two days ago when he was admitted. urinalysis was negative. Streptozyme that we had ordered yesterday is pending. MRSA screen of the nares is negative. Blood cultures are negative. IMPRESSION: This is a young man with recurrent severe cellulitis of the left lower extremity. This is likely a group A or group B streptococcal organism given the fact he does appear to be diabetic, which is a new diagnosis for him and that increases the risk basically. This is group B strep though I still think group A is most likely. Could be Staph but if so it would be methicillin-sensitive Staphylococcus aureus rather than Methicillin-resistant Staphylococcus aureus almost certainly as we have a negative nasal swab. RECOMMENDATIONS: 1. Continue patient on Descovy and Tivicay, which are his HIV drugs. 2. We can continue with vancomycin at this point, as he is clearly improving, though many other choices including daptomycin, linezolid or ceftaroline would make equally good sense in this situation. 3. To enhance the antistreptococcal activity of this regimen, I will add just ceftriaxone while we await our final identification of the organism. 4. If the patient desires it, Imodium or some other drug could be added. It is highly unlikely the patient already has a C. difficile colitis given the very short-term nature of his antibiotics prior to the onset of his diarrhea. GAMALIELD
[2016-08-29 08:10] VITALS: BP 123/69; PULSE 83; RESP 15; O2SAT 96
[2016-08-29] MEDS ORDERED: Vancomycin Inj 1,000 MG in IV Premix 1 EACH IV SCH (08:30)
[2016-08-29] MEDS: Vancomycin Dose per Pharmacist XX SCH (08:30)
[2016-08-29] MEDS: Insulin GLARgine 100 Unit/mL Syringe SUBQ SCH (09:11)
[2016-08-29] MEDS: Insulin LISPRO 300 Unit/3 mL Inj SUBQ SCH ×4 (09:11→22:00)
--- NOTE | 2016-08-29 09:16 | PCM.PHAPRO ---
Progress Date of Service: Aug 29, 2016 Left Leg Cellulitis Assessment/Plan A: Vancomycin dosing for 60 y/o HIV positive man with sepsis, cellulitis The patient received a 1500 mg IV vancomycin loading dose in the ED His estimated CrCl is 60 mL/min (Cockcroft & Gault using AdjBW) Estimated vancomycin half-life is 13 hours and estimated Vd is 65 liters P: Starting vancomycin 1000 mg IV every 12 hours Target a vancomycin trough level of 15 - 20 mcg/mL for now Drawing a trough level prior to the fourth dose which came back at 8.6 Will increase frequency to 1000 mg Q8H which produces an estimated trough of 15. Also instead of giving a loading dose again will stack frequency to 0830, 1400,2200 administration times Next trough due at 08/29 @0530 Thank you. Pharmacy will continue to follow this patient. PARK, Monae Hong PharmD Aug 29, 2016 09:16
[2016-08-29] MEDS: cefTRIAXone Inj 2,000 MG in Dextrose 5% Minibag Plus 50 ML IV SCH (09:59)
[2016-08-29 11:40] VITALS: BP 116/69; PULSE 88; RESP 14; O2SAT 96
[2016-08-29 16:00] VITALS: BP 139/73; PULSE 102; RESP 18; O2SAT 95
--- NOTE | 2016-08-29 16:22 | PCM.PNMED ---
Subjective Date of Service Aug 29, 2016 Subjective 60-year-old man with chronic left lower extremity swelling HIV presents with acute leg cellulitis Left leg pain is markedly improved. Feels that erythema is reduced. Now experiencing diarrhea. Counseled regarding his new diagnosis of diabetes mellitus Exam Vital Signs Vital Sign - Last Date Time Temp Pulse Resp B/P Pulse Ox O2 Delivery O2 Flow Rate FiO2 08/29/16 11:40 36.7 88 14 116/69 96 Room Air Intake and Output 08/28/16 08/28/16 08/29/16 Cumulative From/Thru 15:00 23:00 07:00 08/27/16 16:08 - 08/29/16 06:16 Intake Total 2058 ml 1713 ml 6271 ml Output Total 1050 ml 1700 ml 4025 ml Balance 1008 ml 13 ml 2246 ml Intake Oral 1160 ml 500 ml 2160 ml IV Total 898 ml 1213 ml 4111 ml Output Urine Total 1050 ml 1700 ml 4025 ml # Voids 5 11 # Bowel Movements 1 1 Exam General: Healthy-appearing obese man in no acute distress HEENT: sclerae anicteric, oral mucosa moist Chest: clear to auscultation Cardiac: S1S2, no murmur Abdomen: BS normal, non-tender Extremities: Left leg swollen, patchy erythema over lower three quarters of left lower extremity, no vesicles exudate or crusting Neuro: A&O, cranial nerves symmetric, motor strength and coordination normal IVs and Medications Medications Reviewed: Medications were reviewed in detail Lab and Diagnostics Result Diagram: 08/29/16 0730 08/29/16 0730 Microbiology MRSA negative ASO titer pending Blood cultures pending . X-Rays, CTs and MRIs PROCEDURE: US VEINOUS LEG DUPLEX UNILATERAL, LEFT IMPRESSION: No evidence of deep vein thrombosis involving the left lower extremity. Dictated by: Kristen Coates MD, PhD on 08/27/2016 at 17:52 . 12-lead ECG Sinus Tachycardia with rate of 145 Assessment & Plan 60yo man with history of HIV, HTN, CK D, and chronic left leg swelling presents with fever, NV, increased left leg swelling, pain, and erythema #. Sepsis, POA, improving. SIRS criteria. Sinus tachycardia 161, temperature 39.1, respiratory rate 20, WBC 16.4 on admission. Focal infection left lower extremity cellulitis. NS 1liter bolus given in ER, antibiotics initiated in ER : Vancomycin 1.5gm IV, Aztreonam 3gm IV, Clindamycin 900mg IV. Received fluid resuscitation. - Zoloft #. Left Leg Cellulitis, POA, improving. Treated with a bolus of 1 liter of NS , IV pain medications, and three antibiotics: Vancomycin 1.5gm IV, Aztreonam 3gm IV, Clindamycin 900mg IV in the emergency department. Continued on vancomycin and ceftriaxone. - Cultures negative; ASO titer is negative - CBC w/diff - Elevate leg for symptomatic relief - Hydrocodone-APAP 5-325mg PO q4h PRN for pain #. Type II diabetes mellitus. New diagnosis, 2 random glucose greater than 200 , with hemoglobin A1c 7.3%. -Patient diabetic education - 4 times a day capillary blood glucose - Glucose control goals: Random less than 180, fasting less than 140, none less than 70 - Insulin as needed, divided 50-50 long-acting and nutritional/correctional - Initiate metformin at low dose to develop tolerability, suggest increased to 500 twice a day at time of discharge with instructions to follow-up with PCP for further dose increase. - Continue lisinopril, prescribed for pre-existing renal disease - Initiate rosuvastatin, suggest to continue on discharge #. Diarrhea, not present on admission. Likely antibiotic related. - Psyllium husk fiber daily - Loperamide when necessary #. HIV, POA, stable. Patient has well controlled HIV reporting daily adherence dual NRTI and integrase inhibitor medications and recent T cell count of 600. Patient reporting never having a detectable viral load after starting treatment and last T cell count was 600. He is mounting a good immune response here with WBCs of 16.4 -Continue home doses of Descovy 200-25mg PO qhs and Tivicay 50mg PO qhs. #. HTN, POA, stable. Patient's BP returned to normal levels after a bolus of saline, IV pain medications, and initiation of antibiotics -Continue home dose of Lisinopril 10mg PO daily. #. Tinea Pedis, POA. This is moderately severe between the toes of the left foot and could easily worsen rapidly with the swelling and heat in his foot. -Clotrimazole 1% cream to affected areas BID. DIET: Diabetic Discharge planning: Anticipating need for several more days of intravenous antibiotics, course to be determined by ID sales support consultant Pain Evaluation: Adequate Pain Control GI Prophylaxis: Not indicated VTE Prophylaxis: Sub-Q Heparin (Unfractionated) Resuscitation Status: CPR: Attempt Resuscitation Time spent 35 minutes Toby Moura MD Aug 29, 2016 16:22
[2016-08-29 20:37] VITALS: BP 124/74; PULSE 93; RESP 18; O2SAT 96
[2016-08-29] MEDS: DESCOVY PO SCH (21:00)
[2016-08-30] MEDS: Heparin 5,000 Unit/mL Inj SUBQ SCH ×4 (02:22→23:42)
[2016-08-30] MEDS ORDERED: Vancomycin Serum Trough XX ONE (05:30)
[2016-08-30 06:11] VITALS: BP 117/70; PULSE 94; RESP 16; O2SAT 94
[2016-08-30] MEDS: Vancomycin Inj 1,000 MG in IV Premix 1 EACH IV SCH (06:39)
[2016-08-30 06:45] LABS: Mean Corpuscular Hemoglobin 33.5 pg (27.0-35.0); Mean Corpuscular Volume 100.3 fL (81-100)
--- NOTE | 2016-08-30 06:55 | NUR ---
Transfer/Shift Note Pt arrived to [facility] [place] 248-2 at 1944, pt has no c/o pain, and has been doing well all night. Pt reports some pain when first getting up but has been otherwise independent and is fully alert and oriented, calls appropriately.
[2016-08-30 07:41] VITALS: BP 134/83; PULSE 88; RESP 16; O2SAT 96
[2016-08-30] MEDS: cefTRIAXone Inj 2,000 MG in Dextrose 5% Minibag Plus 50 ML IV SCH (07:49)
[2016-08-30] MEDS: Insulin LISPRO 300 Unit/3 mL Inj SUBQ SCH ×4 (07:50→21:56)
[2016-08-30] MEDS: Insulin GLARgine 100 Unit/mL Syringe SUBQ SCH (08:02)
--- NOTE | 2016-08-30 09:38 | PROG NOTE ---
[address] [address] PROGRESS NOTE PATIENT: MARK JUAREZ : 1955 MR#: [id number] ADMIT: 08/27/2016 JOB ID: [id number] DATE: 08/30/2016 INFECTIOUS DISEASE FOLLOWUP NOTE: REASON FOR FOLLOWUP: Severe cellulitis of the left lower extremity in an HIV-positive patient. INTERVAL HISTORY: Overnight, the patient has had no additional fevers or chills. He has no sore throat. No cough, shortness of breath, nausea, or vomiting. He notes his left leg continues to be erythematous and painful, especially when he stands up and tries to walk. He is a bit discouraged by the slow improvement in his leg as he enters his fourth hospital day. PHYSICAL EXAMINATION: Reveals an afebrile gentleman. Temperature 36.9, pulse 88, respiratory rate 16, blood pressure 134/83. He is in no acute distress. Oral cavity negative. Lungs: Clear. Abdomen: Soft and nontender. His left lower extremity below the knee still with a patchy, warm, tender cellulitis without bullae. His has full range of motion of that leg. LABORATORIES: Include a white count which has completely normalized now to 9400. Has come down in a stepwise fashion very nicely from the start of 16,400. Platelet count 118, interestingly continues to be low. His creatinine 1.1. Procalcitonin was 21, now down to 8, so significantly improved but still very high. Streptozyme on the initial level was 156. Will order a repeat today. MRSA screen was negative. IMPRESSION: This patient continues to have quite a significant cellulitis, which appears streptococcal. He is starting to improve, as we can see by absence of fever, dropping white count and dropping procalcitonin, but his leg is still fairly involved. I think this is likely a streptococcal process, though methicillin-sensitive Staphylococcus aureus is possible. RECOMMENDATION: 1. To consolidate and simplify therapy will switch to daptomycin as a single agent. 2. I anticipate the patient will improve over the next 2-3 days to the point he could be discharged. At that point, I would send the patient out on linezolid 600 mg p.o. b.i.d. to complete a 10-day total course of antibiotics. 3. Will repeat an ASO titer today in hopes of showing a significant increase which would establish group A strep as the cause. 4. Note that I will be out of town the next six days, returning to work the morning of September 06. I can be reached by text or e-mail but not by telephone during that time. Do not hesitate to contact me if there are questions. 5. Infectious Disease will go ahead and sign off at this point, as I am certain the patient will be gone by the time I return.
[2016-08-30] MEDS: 0.9% Sodium Chloride 1,000 ML IV SCH ×3 (10:06→22:52)
[2016-08-30] MEDS: DAPTOmycin Inj 600 MG in 0.9% Sodium Chloride 50 ML IV SCH (11:36)
--- NOTE | 2016-08-30 13:19 | NUR ---
Social Work: Continued d/c planning Data: Pt is on day 3 of hospitalization. EMR reviewed. ID following, pt currently on IVABX but the plan is to transition to POABX by d/c per ID notes. Likely no d/c planning needs. RAILROAD SURVEYOR will continue to follow if needs arise. Assessment: Pt who is independent at baseline. Plan: Pt will d/c home when medically stable. The plan is to transition to POABX by d/c per ID notes. Likely no d/c planning needs. RAILROAD SURVEYOR will continue to follow if needs arise. KRISTINE Castañeda
[2016-08-30 16:33] VITALS: BP 136/83; PULSE 91; RESP 20; O2SAT 97
--- NOTE | 2016-08-30 19:25 | NUR ---
cellulitis Pt. LLE edematous, splotchy redness below knee; pt. states swelling and redness does not seem to be getting better but his numbers sound better. Receiving scheduled abx. Pt. states pain 3-4/10; refusing prn pain medication.
[2016-08-30 20:17] VITALS: BP 156/92; PULSE 89; RESP 17; O2SAT 96
[2016-08-30] MEDS: DESCOVY PO SCH ×2 (20:43→21:00)
[2016-08-30 23:48] VITALS: BP 147/82; PULSE 90; RESP 19; O2SAT 97
--- NOTE | 2016-08-31 00:49 | PCM.PNMED ---
Subjective Date of Service Aug 30, 2016 Subjective Patient is seen and examined. He says that his leg swelling is about the same as when he got here pain is not bad. She feels that somebody told him his lymphatics are disturbed in the remote past but he is unclear as to why. He tells me that his new diagnosis of diabetes is new during this admission. Dr. Morocho is planning on total 2 days of daptomycin and then DC to home on 09/01. Exam Vital Signs Vital Sign - Last Date Time Temp Pulse Resp B/P Pulse Ox O2 Delivery O2 Flow Rate FiO2 08/30/16 16:33 37.0 91 20 136/83 97 Room Air Intake and Output 08/29/16 08/29/16 08/30/16 Cumulative From/Thru 15:00 23:00 07:00 08/27/16 16:08 - 08/30/16 06:11 Intake Total 540 ml 1116 ml 7927 ml Output Total 550 ml 1100 ml 5675 ml Balance -10 ml 16 ml 2252 ml Intake Oral 540 ml 200 ml 2900 ml IV Total 916 ml 5027 ml Output Urine Total 550 ml 1100 ml 5675 ml # Voids 11 # Bowel Movements 1 2 Exam General: NAD, laying in bed, HEENT: NCAT Neck: Large neck Eyes: [place] conjunctivae. No ptosis Neck: No masses, trachea midline, no thyromegaly Lungs: CTA with normal respiratory effort, no crackles or wheezes CV: RRR, no murmurs/rubs/gallops, normal PMI GI: Soft, nondistended MSK: Moving his lower extremities around comfortably Extremities:: Noticeable left extremity edema, appears to be extending into the groin area Skin: Warm and dry. Cellulitic changes below the knee on the left side. Venous stasis changes especially in the ankle and foot. Fungal infection between the toes of the foot bilaterally Psych: A&O X3, with appropriate affect Neuro no focal deficits IVs and Medications IV Fluids None Medications Reviewed: Medications were reviewed in detail Lab and Diagnostics Result Diagram: 08/30/1640 08/30/1640 Microbiology MRSA negative Streptozyme negative Blood cultures negative/NGT date . X-Rays, CTs and MRIs PROCEDURE: US VEINOUS LEG DUPLEX UNILATERAL, LEFT IMPRESSION: No evidence of deep vein thrombosis involving the left lower extremity. Dictated by: Kristen Coates MD, PhD on 08/27/2016 at 17:52 . Assessment & Plan 60yo man with history of HIV, HTN, CK D, and chronic left leg swelling presents with fever, NV, increased left leg swelling, pain, and erythema #. Sepsis, POA, improving. SIRS criteria. Sinus tachycardia 161, temperature 39.1, respiratory rate 20, WBC 16.4 on admission. Focal infection left lower extremity cellulitis. NS 1liter bolus given in ER, antibiotics initiated in ER : Vancomycin 1.5gm IV, Aztreonam 3gm IV, Clindamycin 900mg IV. Received fluid resuscitation. - Zoloft #. Left Leg Cellulitis, POA, improving. Treated with a bolus of 1 liter of NS , IV pain medications, and three antibiotics: Vancomycin 1.5gm IV, Aztreonam 3gm IV, Clindamycin 900mg IV in the emergency department. Continued on vancomycin and ceftriaxone. - Cultures negative; ASO titer is negative - CBC w/diff - Elevate leg for symptomatic relief - Hydrocodone-APAP 5-325mg PO q4h PRN for pain -- He got 1 dose of daptomycin today per ID, 81 cm get 1 more dose of daptomycin prior to getting home on linezolid by mouth, please refer to Dr. Morocho's notes for discharge planning # Unilateral left leg edema: This is concerning for possible malignancy. He has received DVT ultrasounds which were negative in the past he denies prior injury though he does recall disruption of lymphatics. -- Request that patient gets outpatient follow-up for this. He needs a prostate exam. -- Recommend to PCP at the time of discharge that PSA may be trended to follow velocity -- Recommend to PCP at discharge that they follow up with his colonoscopy -- PCP may consider Chest/abd/Pelvic CT #. Type II diabetes mellitus. New diagnosis, 2 random glucose greater than 200 , with hemoglobin A1c 7.3%. -Patient diabetic education - 4 times a day capillary blood glucose - Glucose control goals: Random less than 180, fasting less than 140, none less than 70 - Insulin as needed, divided 50-50 long-acting and nutritional/correctional - Initiate metformin at low dose to develop tolerability, suggest increased to 500 twice a day at time of discharge with instructions to follow-up with PCP for further dose increase. - Continue lisinopril, prescribed for pre-existing renal disease - Initiate rosuvastatin, suggest to continue on discharge: Rosuvastatin is currently held. Need to investigate from pharmacy why. #. Diarrhea, not present on admission. Likely antibiotic related. - Psyllium husk fiber daily - Loperamide when necessary #. HIV, POA, stable. Patient has well controlled HIV reporting daily adherence dual NRTI and integrase inhibitor medications and recent T cell count of 600. Patient reporting never having a detectable viral load after starting treatment and last T cell count was 600. He is mounting a good immune response here with WBCs of 16.4 -Continue home doses of Descovy 200-25mg PO qhs and Tivicay 50mg PO qhs. #. HTN, POA, stable. Patient's BP returned to normal levels after a bolus of saline, IV pain medications, and initiation of antibiotics -Continue home dose of Lisinopril 10mg PO daily. #. Tinea Pedis, POA. This is moderately severe between the toes of the left foot and could easily worsen rapidly with the swelling and heat in his foot. -Clotrimazole 1% cream to affected areas BID. DIET: Diabetic Discharge planning: Anticipating need for several more days of intravenous antibiotics, please look at antibiotics for discharge planning with linezolid after 08/31 Pain Evaluation: Adequate Pain Control GI Prophylaxis: Not indicated VTE Prophylaxis: Sub-Q Heparin (Unfractionated) Resuscitation Status: CPR: Attempt Resuscitation Mary Ayon DO Aug 30, 2016 17:12
[2016-08-31 05:20] VITALS: BP 137/77; PULSE 85; RESP 20; O2SAT 98
--- NOTE | 2016-08-31 05:52 | NUR ---
Pain/BM Pt reports pain 2-07/14 but refused any pain meds at this time. Pt encouraged to get used to checking his BG. He was accepting of instructions. Pt reports x1 BM tonight and reports that it's not diarrhea for the first time. LLL cellulitis intact. No drainage or open area. Elevate up on pillow while in bed. Addendum: 08/31/16 at 0556 by HENRIK HOOVER RN Pt reports upset stomach/abd discomfort. Maalox given with effectiveness noted.
[2016-08-31] MEDS: Insulin LISPRO 300 Unit/3 mL Inj SUBQ SCH ×4 (07:32→21:03)
--- NOTE | 2016-08-31 08:09 | PCM.PNMED ---
Subjective Date of Service Aug 31, 2016 Subjective Feels better, leg less painful and he thinks it looks less red Exam Vital Signs Vital Sign - Last Date Time Temp Pulse Resp B/P Pulse Ox O2 Delivery O2 Flow Rate FiO2 08/31/16 05:20 36.9 85 20 137/77 98 Room Air Intake and Output 08/30/16 08/30/16 08/31/16 Cumulative From/Thru 15:00 23:00 07:00 08/27/16 16:08 - 08/31/16 05:47 Intake Total 1583 ml 1667 ml 51510 ml Output Total 1200 ml 1320 ml 8195 ml Balance 383 ml 347 ml 2982 ml Intake Oral 800 ml 425 ml 4125 ml IV Total 783 ml 1242 ml 7052 ml Output Urine Total 1200 ml 1320 ml 8195 ml # Voids 1 12 # Bowel Movements 2 1 5 Exam Gen: alert, oriented Heart: Reg Lungs: Clear Abd: soft,nontender Extrem: left lower leg with 1+ edema and mild fine wrinkling of skin. lower part of lower leg with solid erythema then prox more patchy but all below knee IVs and Medications Medications Reviewed: Medications were reviewed in detail Lab and Diagnostics Result Diagram: 08/30/1640 08/30/16 0540 Microbiology MRSA negative Streptozyme negative Blood cultures negative/NGT date . X-Rays, CTs and MRIs PROCEDURE: US VEINOUS LEG DUPLEX UNILATERAL, LEFT IMPRESSION: No evidence of deep vein thrombosis involving the left lower extremity. Dictated by: Kristen Coates MD, PhD on 08/27/2016 at 17:52 . Assessment & Plan 60yo man with history of HIV, HTN, CK D, and chronic left leg swelling presents with fever, NV, increased left leg swelling, pain, and erythema #. Sepsis, POA, improving. SIRS criteria. Sinus tachycardia 161, temperature 39.1, respiratory rate 20, WBC 16.4 on admission. Focal infection left lower extremity cellulitis. NS 1liter bolus given in ER, antibiotics initiated in ER : Vancomycin 1.5gm IV, Aztreonam 3gm IV, Clindamycin 900mg IV. Received fluid resuscitation. - Zoloft #. Left Leg Cellulitis, POA, improving. - InitiallyTreated with a bolus of 1 liter of NS, IV pain medications, and three antibiotics: Vancomycin 1.5gm IV, Aztreonam 3gm IV, Clindamycin 900mg IV in the emergency department. Continued on vancomycin and ceftriaxone. - Cultures negative; ASO titer is negative - WBC steadily improved, normal 08/30 - Elevate leg for symptomatic relief - Hydrocodone-APAP 5-325mg PO q4h PRN for pain - Changed to daptomycin 08/30 per ID RECOMMENDATION (Dr Morocho 08/30): 1. To consolidate and simplify therapy will switch to daptomycin as a single agent. 2. I anticipate the patient will improve over the next 2-3 days to the point he could be discharged. At that point, I would send the patient out on linezolid 600 mg p.o. b.i.d. to complete a 10-day total course of antibiotics. 3. Will repeat an ASO titer today in hopes of showing a significant increase which would establish group A strep as the cause. # Unilateral left leg edema: This is concerning for possible malignancy. He has received DVT ultrasounds which were negative in the past he denies prior injury though he does recall disruption of lymphatics. -- Request that patient gets outpatient follow-up for this. He needs a prostate exam. -- Recommend to PCP at the time of discharge that PSA may be trended to follow velocity -- Recommend to PCP at discharge that they follow up with his colonoscopy -- PCP may consider Chest/abd/Pelvic CT #. Type II diabetes mellitus. New diagnosis, 2 random glucose greater than 200 , with hemoglobin A1c 7.3%. -Patient diabetic education - 4 times a day capillary blood glucose - Glucose control goals: Random less than 180, fasting less than 140, none less than 70 - Insulin as needed, divided 50-50 long-acting and nutritional/correctional - Initiate metformin at low dose to develop tolerability, suggest increased to 500 twice a day at time of discharge with instructions to follow-up with PCP for further dose increase. - Continue lisinopril, prescribed for pre-existing renal disease - Initiated rosuvastatin, suggest to continue on discharge: But thenRosuvastatin held 08/30, per pharmacy held by Dr Morocho, probably because of interaction with Daptomycin. #. Diarrhea, not present on admission. Likely antibiotic related. - Psyllium husk fiber daily - Loperamide when necessary #. HIV, POA, stable. Patient has well controlled HIV reporting daily adherence dual NRTI and integrase inhibitor medications and recent T cell count of 600. Patient reporting never having a detectable viral load after starting treatment and last T cell count was 600. He is mounting a good immune response here with WBCs of 16.4 -Continue home doses of Descovy 200-25mg PO qhs and Tivicay 50mg PO qhs. #. HTN, POA, stable. Patient's BP returned to normal levels after a bolus of saline, IV pain medications, and initiation of antibiotics -Continue home dose of Lisinopril 10mg PO daily. #. Tinea Pedis, POA. This is moderately severe between the toes of the left foot and could easily worsen rapidly with the swelling and heat in his foot. -Clotrimazole 1% cream to affected areas BID. DIET: Diabetic Discharge planning: Anticipating need for several more days of intravenous antibiotics, please look at antibiotics for discharge planning with linezolid Pain Evaluation: Adequate Pain Control GI Prophylaxis: Not indicated VTE Prophylaxis: Sub-Q Heparin (Unfractionated) Resuscitation Status: CPR: Attempt Resuscitation Kaila Khan MD Aug 31, 2016 08:09
[2016-08-31 08:19] VITALS: BP 131/71; PULSE 85; RESP 18; O2SAT 94
[2016-08-31] MEDS: 0.9% Sodium Chloride 1,000 ML IV SCH (09:11)
[2016-08-31] MEDS: Heparin 5,000 Unit/mL Inj SUBQ SCH ×2 (09:14→17:05)
[2016-08-31] MEDS: DAPTOmycin Inj 600 MG in 0.9% Sodium Chloride 50 ML IV SCH (09:19)
[2016-08-31] MEDS: Insulin GLARgine 100 Unit/mL Syringe SUBQ SCH (10:21)
[2016-08-31 14:22] VITALS: BP 131/78; PULSE 83; RESP 16; O2SAT 95
--- NOTE | 2016-08-31 15:34 | NUR ---
NUTRITION ASSESSMENT: ASSESS: 60YO M admit with lower extremity cellulitis-improving, on antibiotics. New diagnosis diabetes. Edema PMHX: HIV,HTN, DIET: Diabetic. PO 75-100% LABS: Alb 4.7, [id number], Ca 8.3 MEDS: Metformin GI:+BM 08/31 WEIGHT: 92.2kg BMI: 36.0 EST.NEEDS: OBESITY (20-22kcal/kg;1.2-1.5g/kg pro) Kcal: 6693-4343 Pro: 70-85g NUTRITION DIAGNOSIS: (1) Altered nutrition related laboratory values related to new dx dm as evidenced by A1c. INTERVENTION: (1) Pt educated on diabetic diet 08/29, referral sent to outpatient diabetes program. MONITOR/EVALUATE: PO intake, lab values. F/U per moderate risk.
--- NOTE | 2016-08-31 16:18 | NUR ---
Cellulitis L leg knee to toes red and edematous. Pt states that it is less swollen than yesterday. Some mild wrinkling noted. No weeping or discharge. Rates pain 3/10. Declines pain medication.
--- NOTE | 2016-08-31 20:32 | NUR ---
Cough Patient c/o persistent cough w/min output obtained order for yariel dawson also HL iV
[2016-08-31 20:33] VITALS: BP 140/82; PULSE 84; RESP 18; O2SAT 96
[2016-08-31] MEDS: DESCOVY PO SCH (21:00)
[2016-09-01] MEDS: Heparin 5,000 Unit/mL Inj SUBQ SCH ×3 (00:49→16:30)
[2016-09-01 02:07] VITALS: BP 141/84; PULSE 84; RESP 16; O2SAT 97
[2016-09-01 06:12] VITALS: BP 138/82; PULSE 79; RESP 16; O2SAT 96
[2016-09-01 07:02] LABS: BASOPHILS % (AUTO) 0.7 % (0-3); EOSINOPHILS % (AUTO) 4.6 % (0-5); MONOCYTES % (AUTO) 9.6 % (4-12); Mean Corpuscular Hemoglobin 33.7 pg (27.0-35.0); Mean Corpuscular Volume 99.2 fL (81-100); NEUTROPHILS % (AUTO) 67.8 % (40-74); Platelet Count 154 bil/L (150-400)
[2016-09-01] MEDS: Insulin LISPRO 300 Unit/3 mL Inj SUBQ SCH ×3 (08:49→17:14)
[2016-09-01] MEDS: DAPTOmycin Inj 600 MG in 0.9% Sodium Chloride 50 ML IV SCH (08:50)
[2016-09-01] MEDS: Insulin GLARgine 100 Unit/mL Syringe SUBQ SCH (09:29)
--- NOTE | 2016-09-01 10:35 | NUR ---
Morning Rounds Staffed patient's case with Dr. Khan and social work. Dr. Khan stated patient will possibly discharge today or tomorrow, will be discharged on PO antibiotics.
[2016-09-01 11:14] VITALS: BP 136/88; PULSE 94; RESP 18; O2SAT 97
--- NOTE | 2016-09-01 12:05 | PCM.DIMED ---
Discharge Instructions Date of Service Sep 01, 2016 Dates of Hospitalization Aug 27, 2016 at 19:22 Discharge Diagnosis Discharge Diagnosis Sepsis, POA, resolved. Left Leg Cellulitis, POA, improving. Unilateral left leg edema: Type II diabetes mellitus. New diagnosis, 2 random glucose greater than 200, with hemoglobin A1c 7.3%. HIV, POA, stable. HTN, POA, stable.Tinea Pedis, POA. Diet Diabetic Activity Other (keep left leg elevated as much as possible) Patient Instructions Start the Linezolid tomorrow (September 02) Follow-up with PCP in: 1 week Kaila Khan MD Sep 01, 2016 12:05
[2016-09-01] MEDS ORDERED: LINE600T7 PO (12:08)
[2016-09-01] MEDS ORDERED: HYDR-4003 PO (12:11)
[2016-09-01] MEDS ORDERED: Clotrimazole TOPICAL (12:11)
[2016-09-01] MEDS ORDERED: METF500T PO (12:11)
--- NOTE | 2016-09-01 12:22 | PCM.DC.MED ---
Discharge Summary Date of Service Sep 01, 2016 Dates of Hospitalization Date of Hospital Admission Aug 27, 2016 at 19:22 Date of Discharge: Sep 01, 2016 Providers: Admitting Physician: Jayme Gomez MD Primary Care Physician: Skip George MD Attending Physician: Jayme Gomez MD Diagnosis at Time of Discharge Diagnosis at Time of Discharge Sepsis, POA, resolved. Left Leg Cellulitis, POA, improving. Unilateral left leg edema: Type II diabetes mellitus. New diagnosis, 2 random glucose greater than 200, with hemoglobin A1c 7.3%. HIV, POA, stable. HTN, POA, stable.Tinea Pedis, POA. Procedures XRay, CTs & MRIs PROCEDURE: US VEINOUS LEG DUPLEX UNILATERAL, LEFT IMPRESSION: No evidence of deep vein thrombosis involving the left lower extremity. Dictated by: Kristen Coates MD, PhD on 08/27/2016 at 17:52 . Brief History 60yo man with history of HIV since 2008 well managed went to this afternoon with fever, nausea, vomiting, and left lower extremity swelling, erythema, and pain that started at 1pm with no inciting incident, no broken skin, no trauma. He was sent to the ER where he was found to have VS of T 39.1, HR 161, RR 20, BP 167/95 and 93% O2 sat on room air. Venous ultrasound of left LE was negative for DVT. He was given a bolus of 1 liter of NS, and one dose each of Vancomycin, Aztreonam, and Clindamycin along with pain medications. He is resting comfortably. He says his left leg is always more swollen than the right and he has had milder similar symptoms in the past without feeling otherwise ill. He reports being diagnosed with HIV in 2008 and having always had an undetectable viral load and good T cell count with the last being over 600. He takes Descovy 200-25mg PO qhs and Tivacay 50mg PO qhs. His only other medical problem is hypertension managed well he reports with Lisinopril 10mg PO daily. Hospital Course 60yo man with history of HIV, HTN, CK D, and chronic left leg swelling presents with fever, NV, increased left leg swelling, pain, and erythema #. Sepsis, POA, improving. SIRS criteria. Sinus tachycardia 161, temperature 39.1, respiratory rate 20, WBC 16.4 on admission. Focal infection left lower extremity cellulitis. NS 1liter bolus given in ER, antibiotics initiated in ER : Vancomycin 1.5gm IV, Aztreonam 3gm IV, Clindamycin 900mg IV. Received fluid resuscitation. #. Left Leg Cellulitis, POA, improving. - InitiallyTreated with a bolus of 1 liter of NS, IV pain medications, and three antibiotics: Vancomycin 1.5gm IV, Aztreonam 3gm IV, Clindamycin 900mg IV in the emergency department. Continued on vancomycin and ceftriaxone. - Cultures negative; ASO titer is negative twice - WBC steadily improved, normal 08/30 - Elevated leg - Hydrocodone-APAP 5-325mg PO q4h PRN for pain - Changed to daptomycin 08/30 per ID RECOMMENDATION (Dr Morocho 08/30): 1. To consolidate and simplify therapy will switch to daptomycin as a single agent. 2. I anticipate the patient will improve over the next 2-3 days to the point he could be discharged. At that point, I would send the patient out on linezolid 600 mg p.o. b.i.d. to complete a 10-day total course of antibiotics. 3. Will repeat an ASO titer today in hopes of showing a significant increase which would establish group A strep as the cause. (still negative) # Unilateral left leg edema: This is concerning for possible malignancy. He has received DVT ultrasounds which were negative in the past he denies prior injury though he does recall disruption of lymphatics. -- Request that patient gets outpatient follow-up for this. He needs a prostate exam. -- Recommend to PCP at the time of discharge that PSA may be trended to follow velocity -- Recommend to PCP at discharge that they follow up with his colonoscopy -- PCP may consider Chest/abd/Pelvic CT #. Type II diabetes mellitus. New diagnosis, 2 random glucose greater than 200 , with hemoglobin A1c 7.3%. -Patient diabetic education - 4 times a day capillary blood glucose - Glucose control goals: Random less than 180, fasting less than 140, none less than 70 - Insulin while in hospital, glucoses in the 100's, will try just Metformin as an outpatient with dose to be increased by PCP and additional therapies if needed - Initiate metformin at low dose to develop tolerability, increased to 500 twice a day at time of discharge - Continue lisinopril, prescribed for pre-existing renal disease - Initiated rosuvastatin, suggest to continue on discharge: But thenRosuvastatin held 08/30, per pharmacy held by Dr Morocho, probably because of interaction with Daptomycin, could be started later as oupatient #. Diarrhea, not present on admission. Likely antibiotic related. - Psyllium husk fiber daily - Loperamide when necessary #. HIV, POA, stable. Patient has well controlled HIV reporting daily adherence dual NRTI and integrase inhibitor medications and recent T cell count of 600. Patient reporting never having a detectable viral load after starting treatment and last T cell count was 600. He is mounting a good immune response here with WBCs of 16.4 -Continue home doses of Descovy 200-25mg PO qhs and Tivicay 50mg PO qhs. #. HTN, POA, stable. Patient's BP returned to normal levels after a bolus of saline, IV pain medications, and initiation of antibiotics -Continue home dose of Lisinopril 10mg PO daily. #. Tinea Pedis, POA. This is moderately severe between the toes of the left foot and could easily worsen rapidly with the swelling and heat in his foot. -Clotrimazole 1% cream to affected areas BID. DIET: Diabetic Discharge planning: Anticipating need for several more days of intravenous antibiotics, please look at antibiotics for discharge planning with linezolid Exam Vital Signs (Last) Date Time Temp Pulse Resp B/P Pulse Ox O2 Delivery O2 Flow Rate FiO2 09/01/16 11:14 37.3 94 18 136/88 97 Room Air Exam Alert and oriented Heart: Reg Lungs: Clear Abd: soft, nontender Left leg: still obviously more swollen than right but just tr-1+ pitting and some fine wrinkling of skin compared to yesterday erythema is less intense and some areas have resolved on proximal lower leg Test 08/27/16 16:25 08/27/16 18:37 08/28/16 09:15 08/29/16 07:56 Magnesium Level 1.5mg/dL (1.6-2.6) Troponin T < 0.010ug/L (0.0-0.011) Urine Color Yellow (YELLOW) Urine Appearance Clear (CLEAR,HAZY) Urine pH 6.0 (5.0-8.0) Urine Specific [place] 1.015 (1.003-1.035) Urine Protein Tracemg/dL (NEG,TRACE) Urine Glucose (UA) 1000mg/dL (NEGATIVE) Urine Ketones Negativemg/dL (NEGATIVE) Urine Occult Blood Small (NEGATIVE) Urine Nitrite Negative (NEGATIVE) Urine Bilirubin Negative (NEGATIVE) Urine Urobilinogen Normalmg/dL (NORMAL) Urine Leukocyte Esterase Negative (NEGATIVE) Urine RBC 0-2/hpf (0-2) Urine WBC 0-5/hpf (0-5) Urine Epithelial Cells None/hpf (NONE-MOD) Urine Crystals None seen (NONE SEEN) Urine Bacteria Few/hpf (NONE-FEW) Urine Hyaline Casts None/lpf (NONE) Urine Granular Casts None seen (NONE SEEN) Urine Waxy Casts None seen (NONE SEEN) Urine Red Blood Cell Casts None seen (NONE SEEN) Urine White Blood Cell Casts None seen (NONE SEEN) Urine Mucus None seen (None Seen) Urine Trichomonas None seen (NONE SEEN) Urine Yeast None (NONE SEEN) Urinalysis Comment None Urine Culture Reflexed Not indicated Hemoglobin A1c 7.3% (4.8-5.6) Lactic Acid Level 1.4mmol/L (0.4-2.0) Test 08/30/16 05:40 09/01/16 06:35 Procalcitonin 8.36ng/mL (0.00-0.08) Vancomycin Level Trough 16.6mcg/mL Streptozyme 127.2IU/mL (0.0-200.0) White Blood Count 8.3th/mm3 (3.8-10.1) Red Blood Count 3.65mil/mm3 (4.40-5.80) Hemoglobin 12.3g/dL (13.8-17.2) Hematocrit 36.2% (41.0-50.0) Mean Corpuscular Volume 99.2fL (81-100) Mean Corpuscular Hemoglobin 33.7pg (27.0-35.0) Mean Corpuscular Hemoglobin Concent 34.0% (32.0-37.0) Red Cell Distribution Width 13.2% (12.3-15.4) Platelet Count 154bil/L (150-400) Neutrophils (%) (Auto) 67.8% (40-74) Lymphocytes (%) (Auto) 15.6% (14-46) Monocytes (%) (Auto) 9.6% (4-12) Eosinophils (%) (Auto) 4.6% (0-5) Basophils (%) (Auto) 0.7% (0-3) Sodium Level 140mEq/L (134-144) Potassium Level 4.0mEq/L (3.5-5.2) Chloride Level 104mEq/L (97-108) Carbon Dioxide Level 22mmol/L (18-29) Blood Urea Nitrogen 10mg/dL (6-24) Creatinine 1.02mg/dL (0.76-1.27) Estimat Glomerular Filtration Rate 80mL/min (>59) Glucose Level 146mg/dL (60-99) Calcium Level 8.8mg/dL (8.5-10.1) Total Bilirubin 0.4mg/dL (0.0-1.2) Aspartate Amino Transf (AST/SGOT) 56U/L (0-50) Alanine Aminotransferase (ALT/SGPT) 55U/L (0-44) Alkaline Phosphatase 50U/L (25-150) Total Protein 6.3g/dL (6.4-8.4) Albumin 3.7g/dL (3.4-5.0) Microbiology Results MRSA negative Streptozyme negative Blood cultures negative/NGT date . Discharge Medications Discharge Medications ([Clotrimazole]) 1 APPLIC/0.25 GM CREAM 1 APPLIC TOPICAL BID Prescribed by: BASIL ROJAS MD Linezolid (Linezolid) 600 Mg Tablet 600 MG PO BID Prescribed by: BASIL ROJAS MD Lisinopril (Lisinopril) 10 Mg Tablet 10 MG PO DAILY (Reported) Metformin (Glucophage) 500 Mg Tablet 500 MG PO BID Prescribed by: BASIL ROJAS MD As needed Hydrocodone-Acetaminophen 5-325 mg (Hydrocodone-Acetaminophen 5-325 mg) 1 Each Tablet 1 TABLET PO Q4 PRN PRN For Mild Pain Prescribed by: BASIL ROJAS MD Miscellaneous Medications Dolutegravir Sodium (Tivicay) 50 Mg Tablet 50 MG PO (Reported) Emtricitabine/Tenofov Alafenam (Descovy 200-25 mg Tablet) 200 Mg-25 Mg Tablet 1 EACH PO (Reported) Followup Plan Discharge Diet: Diabetic Discharge Activity: Other (keep left leg elevated as much as possible) Patient Instructions Start the Linezolid tomorrow (September 02) Follow-up with PCP in: 1 week Basil Rojas MD Sep 01, 2016 12:22
--- NOTE | 2016-09-01 17:14 | NUR ---
Discharge Note Provided all discharge instructions and information to patient at this time, he understood that his Metformin has been electronically sent to his pharmacy. Discontinued patient's IV intact at this time. Patient had no other questions at this time. Patient gathered all belongings from room and will be meeting his friend for transportation downstairs in about 30 minutes.
== END 2016-09-01 18:05 | disposition home or self-care (01) | DRG 892 ==
LOC: SED 16:05 → PCC 19:22 → MOC 08-29 20:04
PROVIDERS: ADMIT Hospitalist; ATTEND Hospitalist
DX: A41.9 Sepsis, unspecified organism (principal); B20 Human immunodeficiency virus [HIV] disease; L03.116 Cellulitis of left lower limb; I10 Essential (primary) hypertension; B35.3 Tinea pedis; E11.9 Type 2 diabetes mellitus without complications